=== PATIENT | male | born 1950 | race Caucasian/White ===

== ENCOUNTER → 2016-07-02 | Outpatient (CLI) | payer BC | END | disposition home or self-care (01) | LOC: LAB 14:49 | PROVIDERS: ATTEND Family Medicine | DX: E11.8 Type 2 diabetes mellitus with unspecified complications (principal) | CPT/HCPCS: 36415; 83036 ==

== ENCOUNTER → 2017-01-29 | Outpatient (CLI) | payer BC, MEDICARE ==
[2017-01-29 07:46] LABS: Urine RBC None Seen /hpf (0 - 3)
[2017-01-29 07:55] LABS: Basophils # (auto) 0.1 uL; Basophils % (auto) 1.5 % (0.0-2.0); Eosinophils # (auto) 0.2 uL; Eosinophils % (auto) 3.3 % (0.0-7.0); Hematocrit 45.4 % (41.0-53.0); Hemoglobin 15.4 g/dL (13.5-17.5); Lymphocytes # (auto) 1.7 uL; Lymphocytes % (auto) 29.1 % (10.0-50.0); Mean Corpuscular Hemoglobin 30.3 pg (28.0-32.0); Mean Corpuscular Hgb Conc. 33.9 g/dL (32.0-36.0); Mean Corpuscular Volume 89.5 fL (80.0-100.0); Mean Platelet Volume 7.1 fL (6.9-10.8); Monocytes # (auto) 0.6 uL; Monocytes % (auto) 9.6 % (0.0-12.0); Neutrophils # (auto) 3.4 uL; Neutrophils % (auto) 56.5 % (37.0-80.0); Nucleated Red Blood Cells % 0.1 %; Platelet Count (auto) 287 10^3/uL (140-450); Red Cell Distribution Width 13.5 % (11.8-14.3)
[2017-01-29 07:59] LABS: Urine Bilirubin Negative (Negative); Urine Blood Negative /uL (Negative); Urine Color Yellow (Yellow); Urine Glucose Normal (Normal); Urine Ketone Negative (Negative); Urine Mucus FEW (None Seen); Urine Nitrite Negative (Negative); Urine Sperm PRESENT /hpf (None Seen); Urine Squamous Epithelial Cell FEW /hpf (<5); Urine Urobilinogen Normal (Negative)
[2017-01-29 08:08] LABS: Albumin 3.9 g/dL (3.4-5.0); BUN/Creatinine Ratio 15.1; Bilirubin, Total 0.4 mg/dL (0.2-1.0); Potassium 4.4 mmol/L (3.5-5.1); Total Protein 7.8 g/dL (6.4-8.2)
[2017-01-30 08:09] LABS: PSA Free 1.63 ng/mL; Prostate Specific Antigen 6.3 ng/mL (0.0-4.0)
== END | disposition home or self-care (01) ==
LOC: LAB 07:07
PROVIDERS: ATTEND Family Medicine
DX: E11.9 Type 2 diabetes mellitus without complications (principal); I10 Essential (primary) hypertension; R97.20 Elevated prostate specific antigen [PSA]
CPT/HCPCS: 36415; 80053; 80061; 81001; 82043; 83036; 84153; 84154; 85025

== ENCOUNTER → 2017-09-10 | Outpatient (CLI) | payer BC, MEDICARE ==
[2017-09-10 07:42] LABS: Basophils # (auto) 0 uL; Basophils % (auto) 0.3 % (0.0-2.0); Eosinophils # (auto) 0.3 uL; Eosinophils % (auto) 4.3 % (0.0-7.0); Hematocrit 43.4 % (41.0-53.0); Hemoglobin 14.6 g/dL (13.5-17.5); Mean Corpuscular Hemoglobin 30.1 pg (28.0-32.0); Mean Corpuscular Hgb Conc. 33.7 g/dL (32.0-36.0); Mean Corpuscular Volume 89.4 fL (80.0-100.0); Monocytes # (auto) 0.6 uL; Monocytes % (auto) 9.3 % (0.0-12.0); Neutrophils # (auto) 3.6 uL; Neutrophils % (auto) 56.1 % (37.0-80.0); Nucleated Red Blood Cells % 0.1 %; Platelet Count (auto) 230 10^3/uL (140-450); Red Blood Cells 4.85 10^6/uL (4.5-5.90); White Blood Cell 6.5 10^3/uL (4.4-10.8)
[2017-09-10 08:33] LABS: CRP High Sensitivity 0.13 mg/dL (< 0.3)
== END | disposition home or self-care (01) ==
LOC: LAB 07:16
PROVIDERS: ATTEND Family Medicine
DX: M10.9 Gout, unspecified (principal); I10 Essential (primary) hypertension; E11.9 Type 2 diabetes mellitus without complications; R97.20 Elevated prostate specific antigen [PSA]
CPT/HCPCS: 36415; 84153; 84154; 84550; 85025; 86141

== ENCOUNTER → 2018-04-22 | Outpatient (CLI) | payer BC, MEDICARE | END | disposition home or self-care (01) | LOC: LAB 08:17 | PROVIDERS: ATTEND Urology | DX: C61 Malignant neoplasm of prostate (principal) | CPT/HCPCS: 36415; 82565; 84520 ==

== ENCOUNTER 2018-05-06 06:11 | Inpatient (IN) | payer BC, MEDICARE ==
[2018-05-02 10:12] LABS: Basophils # (auto) 0.1 uL; Eosinophils # (auto) 0.4 uL; Eosinophils % (auto) 6.5 % (0.0-7.0); Hematocrit 46.2 % (41.0-53.0); Hemoglobin 15.7 g/dL (13.5-17.5); Lymphocytes # (auto) 1.5 uL; Lymphocytes % (auto) 23.5 % (10.0-50.0); Mean Corpuscular Hemoglobin 31.2 pg (28.0-32.0); Mean Corpuscular Hgb Conc. 34.1 g/dL (32.0-36.0); Mean Corpuscular Volume 91.6 fL (80.0-100.0); Monocytes # (auto) 0.6 uL; Monocytes % (auto) 9.7 % (0.0-12.0); Neutrophils # (auto) 3.7 uL; Neutrophils % (auto) 59.3 % (37.0-80.0); Nucleated Red Blood Cells % 0.1 %; Platelet Count (auto) 259 10^3/uL (140-450); Red Blood Cells 5.04 10^6/uL (4.5-5.90); Red Cell Distribution Width 14.2 % (11.8-14.3); White Blood Cell 6.3 10^3/uL (4.4-10.8)
[2018-05-02 10:19] LABS: Urine Bacteria NONE SEEN /hpf (None Seen); Urine Blood Negative /uL (Negative); Urine Specific Gravity 1.009 (1.001-1.035); Urine WBC <1 /hpf (0 - 3)
[2018-05-02 10:35] LABS: INR 0.92 (0.9-1.15); Partial Thromboplastin Time 31.1 sec (23.78-33.04); Prothrombin Time 9.9 sec (9.27-12.13)
[2018-05-02 10:40] LABS: Potassium 4.6 mmol/L (3.5-5.1)
[2018-05-02 10:45] LABS: BUN/Creatinine Ratio 18.8; Bilirubin, Total 0.2 mg/dL (0.2-1.0); Calcium 9.4 mg/dL (8.5-10.1); Total Protein 7.9 g/dL (6.4-8.2)
[~2018-05-06] VITALS: Ht 175.3 cm; Wt 104.2 kg
[~2018-05-06 06:11] MED LIST: LISI-646 PO; LOVA20TA4 PO
[2018-05-06] MEDS ORDERED: BUPIVACAINE 0.25% INJ 50ML VIAL ONE (07:09)
[2018-05-06] MEDS ORDERED: LIDOCAINE W/ EPINEPHRINE 1% 20ML VIAL ONE (07:09)
[2018-05-06] MEDS ORDERED: LEVOFLOXACIN 500MG 100 ML IV ONE (07:19)
[2018-05-06] MEDS ORDERED: HYDROmorphone HCL 2 MG/ML VL ONE (07:20)
[2018-05-06] MEDS ORDERED: fentaNYL CITRATE 100 MCG/2 ML VL ONE (07:20)
[2018-05-06] MEDS ORDERED: fentaNYL CITRATE 5 ML ONE (07:20)
[2018-05-06] MEDS ORDERED: MIDAZOLAM HCL 1MG/1ML-2 ML VIAL ONE (07:20)
[2018-05-06] MEDS ORDERED: SUCCINYLCHOLINE CHLORIDE 20 MG/ML 10ML VIAL IV ONE (07:25)
[2018-05-06] MEDS ORDERED: METHYLENE BLUE 0.5% 5MG/ML 10ml AMP IV ONE (07:29)
[2018-05-06] MEDS ORDERED: PROPOFOL 10 MG/ML 20 ML IV ONE (07:35)
[2018-05-06] MEDS ORDERED: DEXAMETHASONE SOD PHOS 10MG/1ML VIAL INJ ONE (07:35)
[2018-05-06] MEDS ORDERED: HYDROmorphone HCL 2 MG/ML VL IV PRN ×2 (09:30→10:15)
[2018-05-06] MEDS ORDERED: MORPHINE SULFATE 4 MG/ML SYR/VIAL IV PRN (09:30)
[2018-05-06] MEDS ORDERED: ONDANSETRON HCL 4 MG/2 ML VIAL IV ONE (09:30)
[2018-05-06] MEDS ORDERED: MIDAZOLAM HCL 1MG/1ML-2 ML VIAL IV PRN (09:30)
[2018-05-06] MEDS ORDERED: KETOROLAC TROMETH 30 MG/ML 1ML VIAL IV ONE (09:30)
[2018-05-06] MEDS ORDERED: ACCU-CHEK COMFORT CURVE STRIP VI ONE (09:30)
[2018-05-06] MEDS ORDERED: LABETALOL HCL 5 MG/ML 4ML SYRINGE IV PRN (09:30)
[2018-05-06] MEDS ORDERED: ePHEDrine SULFATE 50 MG/ML AMP IV PRN (09:30)
[2018-05-06] MEDS ORDERED: GLYCOPYRROLATE 0.2 MG/ML 1ML VIAL ONE (09:43)
[2018-05-06] MEDS ORDERED: KETOROLAC TROMETH 30 MG/ML 1ML VIAL ONE (09:43)
[2018-05-06] MEDS ORDERED: NEOSTIGMINE 1 MG/ML INJ (10mg/10ML VIAL) ONE (09:43)
[2018-05-06] MEDS ORDERED: MORPHINE SULFATE 4 MG/ML SYR/VIAL IV ONE (10:00)
[2018-05-06] MEDS ORDERED: ONDANSETRON HCL 4 MG/2 ML VIAL IV PRN (10:15)
[2018-05-06] MEDS ORDERED: diphenhdrAMINE HCL 50 MG/1 ML VL IV PRN (10:15)
[2018-05-06 11:10] LABS: Calcium 7.9 mg/dL (8.5-10.1); Potassium 4.5 mmol/L (3.5-5.1)
[2018-05-06 11:12] LABS: BUN/Creatinine Ratio 11.6
[2018-05-06] MEDS: D5W/SOD CHL 0.45% 1,000 ML IV SCH ×2 (13:30→18:12)
[2018-05-06 16:31] VITALS: BP 150/71
--- NOTE | 2018-05-06 16:31 | NUR ---
i was given report to assume care , patient is alert and oriented x4 with no distress noted, respirations are unlabored, he is sitting up in bed, wearing a n/c at 2 liters, vs are stable, pain to penis at3/10, abdominal binder in place, urine is pink tinged, flowing well in herndon. pt verbalized hes comfortable. belongings noted, oriented to the room, bed placed to lowest position, call light placed within reach.
[2018-05-06] MEDS ORDERED: ALLO100T PO (16:55)
[2018-05-06 17:14] VITALS: BP 146/83
--- NOTE | 2018-05-06 18:32 | NUR ---
flushed herndon catheter, no blood clots noted, flowing well, 250 output, el color. no bladder distention noted, pt tolerated well.
--- NOTE | 2018-05-06 19:30 | NUR ---
Opening Shift Note Assumed care of patient, awake and alert. No S/S of distress/SOB. Ordaz currently has approximately 350ml of clear yellow void. Patient has abdominal binder and 5 abdominal incisions CDI except for midline which has minimal serosanguineous drainage. Instructed on POC and to call for assist PRN, will continue to monitor for changes Q1hr and PRN.
[2018-05-06] MEDS: PRAVASTATIN SODIUM 20 MG TAB PO SCH (21:09)
[2018-05-06 22:00] VITALS: BP 134/73
[2018-05-06] MEDS: ACETAMINOPHEN/CODEINE#3 (300/30mg) TAB PO PRN (23:15)
--- NOTE | 2018-05-06 23:20 | NUR ---
Patient rounding - patient void in herndon bag is still clear yellow - no clots noted. patient c/o 4 of 10 pain - administered PRN pain medication.
--- NOTE | 2018-05-07 02:00 | NUR ---
Patient rounding - patient resting w/ no signs of distress. Will continue to monitor.
[2018-05-07] MEDS: D5W/SOD CHL 0.45% 1,000 ML IV SCH ×4 (02:40→21:56)
[2018-05-07 05:13] VITALS: BP 131/61
[2018-05-07] MEDS: ACETAMINOPHEN/CODEINE#3 (300/30mg) TAB PO PRN ×4 (05:58→21:56)
[2018-05-07 06:18] LABS: Basophils # (auto) 0 uL; Basophils % (auto) 0.4 % (0.0-2.0); Eosinophils # (auto) 0 uL; Eosinophils % (auto) 0.1 % (0.0-7.0); Hematocrit 39.3 % (41.0-53.0); Hemoglobin 13.3 g/dL (13.5-17.5); Lymphocytes # (auto) 0.9 uL; Lymphocytes % (auto) 8.2 % (10.0-50.0); Mean Corpuscular Hemoglobin 30.9 pg (28.0-32.0); Mean Corpuscular Hgb Conc. 33.7 g/dL (32.0-36.0); Mean Corpuscular Volume 91.8 fL (80.0-100.0); Monocytes # (auto) 1.1 uL; Monocytes % (auto) 10.6 % (0.0-12.0); Neutrophils # (auto) 8.7 uL; Neutrophils % (auto) 80.7 % (37.0-80.0); Platelet Count (auto) 225 10^3/uL (140-450); Red Blood Cells 4.28 10^6/uL (4.5-5.90); Red Cell Distribution Width 14.2 % (11.8-14.3); White Blood Cell 10.8 10^3/uL (4.4-10.8)
--- NOTE | 2018-05-07 06:45 | NUR ---
Patient still draining clear yellow void from herndon bag - no clots noted. Patient did not want leg bag at this moment. Will endorse to rivera DAVIDSON.
[2018-05-07 07:07] LABS: BUN/Creatinine Ratio 13.6; Calcium 8.1 mg/dL (8.5-10.1)
--- NOTE | 2018-05-07 08:00 | NUR ---
RECEIVED PT RESTING IN BED, CALL LIGHT WITHIN REACH, PT DENIES ANY PAIN AT THIS TIME, ABDOMINAL BINDER ON, MID ABDOMEN INCISIONS X5 CLEAN AND DRY, WILL CONTINUE TO MONITOR PT. PT EDUCATED ON THE USE AND FREQUENCY OF THE INCENTIVE SPIROMETER, RETURNED DEMONSTRATION DONE,
[2018-05-07 09:00] VITALS: BP 111/63
[2018-05-07] MEDS: LISINOPRIL 20 MG TAB PO SCH (10:00)
--- NOTE | 2018-05-07 10:10 | NUR ---
DR. MORRIS AT BED SIDE TO SEE PT.
[2018-05-07] MEDS ORDERED: LEVOFLOXACIN 500 MG TAB PO ONE (10:15)
[2018-05-07] MEDS: ALLOPURINOL 100 MG TAB PO SCH (10:23)
--- NOTE | 2018-05-07 11:30 | NUR ---
PT AMBULATED WITH PHYSICAL THERAPY OUT OF THE ROOM ON THE HALLWAY. PT TOLERATED WELL.
--- NOTE | 2018-05-07 11:45 | NUR ---
PAGED AND LEFT A MESSAGE TO DR. ANGEL / UROLOGY FOR THE CONSULT, AWAITING CALL BACK.
--- NOTE | 2018-05-07 12:30 | NUR ---
DR. MORRIS INFORMED REGARDING PT HAVING LOW GRADE FEVERS OF 99.1, NO FURTHER ORDERS RECEIVED.
[2018-05-07 12:57] VITALS: BP 114/67
--- NOTE | 2018-05-07 15:00 | NUR ---
UROLOGY / PAGE AT BED SIDE TO SEE PT.
--- NOTE | 2018-05-07 15:30 | NUR ---
DRESSING CHANGE RECEIVED ORDERS FROM UROLOGY / BANNER TO CHANGE THE ABDOMINAL DRESSINGS. REMOVED OLD DRESSINGS, CLEANED WITH STERILE SALINE, PAD DRY WITH GAUZE, COVERED WITH GAUZE AND SECURE WITH TAPE,
[2018-05-07 17:00] VITALS: BP 129/74
[2018-05-07] MEDS ORDERED: CALCIUM CARB 500 MG CHEW TAB PO PRN (18:45)
--- NOTE | 2018-05-07 18:55 | NUR ---
CALLED AND SPOKE TO [facility]/ HOSPITALIST PER PT'S REQUEST, PT REQUESTING AN ANTI ACID MEDICATION. RECEIVED ORDER TO GIVE PROTONIX 40 MG IV Q DAY AND CALCIUM CARBONATE ONE TABLET TID PRN,
[2018-05-07] MEDS ORDERED: PANTOPRAZOLE 40 MG/10 ML VIAL IV ONE (19:00)
--- NOTE | 2018-05-07 19:30 | NUR ---
Opening Shift Note Assumed care of patient, awake and alert. No S/S of distress/SOB. Instructed on POC and to call for assist PRN, will continue to monitor for changes Q1hr and PRN.
--- NOTE | 2018-05-07 20:00 | NUR ---
Assessments - Ordaz is draining clear yellow output. Patient c/o 3 to 4 pain. Patient has been ambulating during the day per pt. Patient requesting to rest - patient reports fatigue and lack of sleep. Advised patient that I would return during medication pass time.
[2018-05-07] MEDS: PRAVASTATIN SODIUM 20 MG TAB PO SCH (21:56)
[2018-05-07 22:00] VITALS: BP 116/66
[2018-05-08 04:52] LABS: Basophils # (auto) 0.1 uL; Basophils % (auto) 1.2 % (0.0-2.0); Eosinophils # (auto) 0.1 uL; Eosinophils % (auto) 0.8 % (0.0-7.0); Hematocrit 41.6 % (41.0-53.0); Hemoglobin 13.9 g/dL (13.5-17.5); Lymphocytes # (auto) 0.9 uL; Lymphocytes % (auto) 9.2 % (10.0-50.0); Mean Corpuscular Hgb Conc. 33.5 g/dL (32.0-36.0); Mean Corpuscular Volume 92.4 fL (80.0-100.0); Monocytes # (auto) 1.3 uL; Monocytes % (auto) 12.5 % (0.0-12.0); Neutrophils # (auto) 7.8 uL; Neutrophils % (auto) 76.3 % (37.0-80.0); Platelet Count (auto) 190 10^3/uL (140-450); White Blood Cell 10.2 10^3/uL (4.4-10.8)
[2018-05-08 05:15] VITALS: BP 136/75
[2018-05-08] MEDS: ACETAMINOPHEN/CODEINE#3 (300/30mg) TAB PO PRN (07:10)
--- NOTE | 2018-05-08 07:20 | NUR ---
OPENING SHIFT PATIENT AWAKE, ALERT, AND ORIENTED X4. NO S/S OF DISTRESS OR SOB. PATIENT DENIES PAIN AT THIS TIME. RESPIRATIONS ARE EVEN AND UNLABORED. DISCUSSED POC WITH PATIENT. PATIENT VERBALIZED UNDERSTANDING. BED IS IN LOWEST POSITION, SIDE RAILS UP X2, AND CALL LIGHT WITHIN REACH. WILL CONTINUE TO MONITOR Q1 HOUR AND PRN.
[2018-05-08 08:00] VITALS: BP 123/73
[2018-05-08] MEDS ORDERED: PANTOPRAZOLE 40 MG/10 ML VIAL IV SCH (10:00)
[2018-05-08] MEDS ORDERED: LEVOFLOXACIN 500 MG TAB PO ONE (10:15)
[2018-05-08] MEDS: LISINOPRIL 20 MG TAB PO SCH (10:47)
[2018-05-08] MEDS: ALLOPURINOL 100 MG TAB PO SCH (10:47)
[2018-05-08 12:00] VITALS: BP 140/69
[2018-05-08] MEDS: D5W/SOD CHL 0.45% 1,000 ML IV SCH (12:55)
--- NOTE | 2018-05-08 13:08 | NUR ---
PATIENT DISCHARGE PATIENT IS CURRENTLY DISCHARGED. PAPER WORK HAS BEEN SIGNED, ARM BANDS REMOVED, I.V.S REMOVED WITH CATHETERS INTACT. ALL QUESTIONS AND CONCERNS ADDRESSED. EDUCATION HAS BEEN PROVIDED TO PATIENT AND FOR POST PROSTATECTOMY CARE. PATIENT IS TO BE SENT HOME WITH NASCIMENTO AND LEG BAG. LEG BAG ATTACHED. PATIENT WISHES TO SHOWER BEFORE GOING HOME. SHOWER INSTRUCTIONS GIVEN TO PATIENT. PATIENT WILL SHOWER AND THEN BE WHEELED DOWN TO PERSONAL VEHICLE.
--- NOTE | 2018-05-08 14:10 | NUR ---
DISCHARGE PATIENT TRANSPORTED DOWN BY STAFF AND FAMILY MEMBER. NO S/S OF DISTRESS AT TIME OF DEPARTURE.
[2018-05-09] MEDS ORDERED: LEVOFLOXACIN 500 MG TAB PO SCH (10:00)
== END 2018-05-08 14:10 | disposition home or self-care (01) | DRG 708 ==
LOC: EEVIPCON 06:11 → SUR 06:11 → CENTRAL 10:14
PROVIDERS: ADMIT Internal Medicine; ATTEND Internal Medicine
PROC: 0VT34ZZ Resection of Bilateral Seminal Vesicles, Percutaneous Endoscopic Approach (ICD-10-PCS; 2018-05-06)
PROC: 0VBQ4ZZ Excision of Bilateral Vas Deferens, Percutaneous Endoscopic Approach (ICD-10-PCS; 2018-05-06)
PROC: 8E0W4CZ Robotic Assisted Procedure of Trunk Region, Percutaneous Endoscopic Approach (ICD-10-PCS; 2018-05-06)
PROC: 07BC4ZZ Excision of Pelvis Lymphatic, Percutaneous Endoscopic Approach (ICD-10-PCS; 2018-05-06)
PROC: 0VT04ZZ Resection of Prostate, Percutaneous Endoscopic Approach (ICD-10-PCS; principal; 2018-05-06 07:34)
DX: C61 Malignant neoplasm of prostate (principal); E78.5 Hyperlipidemia, unspecified; I10 Essential (primary) hypertension; M10.9 Gout, unspecified; E66.9 Obesity, unspecified; E11.9 Type 2 diabetes mellitus without complications; K21.9 Gastro-esophageal reflux disease without esophagitis; N40.0 Benign prostatic hyperplasia without lower urinary tract symptoms; Z90.79 Acquired absence of other genital organ(s); Z88.0 Allergy status to penicillin; Z79.899 Other long term (current) drug therapy; Z68.33 Body mass index [BMI] 33.0-33.9, adult
CPT/HCPCS: 36415; 80048; 80053; 81001; 85025; 85610; 85730; 86850; 86900; 86901; 97116; 97163; 97530; A6257; C9113; G0378; J0330; J1100; J1885; J1956; J2250; J2704; J3490

== ENCOUNTER 2018-05-10 10:46 | Emergency (ER) | payer BC, MEDICARE ==
[~2018-05-10] VITALS: Ht 180.3 cm; Wt 96.2 kg
[~2018-05-10 10:46] MED LIST changes: +ALLO100T PO
[2018-05-10 10:55] VITALS: BP 161/86
[2018-05-10 12:04] LABS: Basophils # (auto) 0 uL; Basophils % (auto) 0.4 % (0.0-2.0); Eosinophils # (auto) 0.1 uL; Eosinophils % (auto) 0.9 % (0.0-7.0); Hematocrit 41.6 % (41.0-53.0); Hemoglobin 14.3 g/dL (13.5-17.5); Lymphocytes # (auto) 0.6 uL; Lymphocytes % (auto) 5.9 % (10.0-50.0); Mean Corpuscular Hemoglobin 31.6 pg (28.0-32.0); Mean Corpuscular Hgb Conc. 34.3 g/dL (32.0-36.0); Mean Corpuscular Volume 92.1 fL (80.0-100.0); Monocytes # (auto) 0.9 uL; Monocytes % (auto) 8.7 % (0.0-12.0); Neutrophils # (auto) 9.1 uL; Neutrophils % (auto) 84.1 % (37.0-80.0); Nucleated Red Blood Cells % 0.1 %; Platelet Count (auto) 228 10^3/uL (140-450); Red Blood Cells 4.51 10^6/uL (4.5-5.90); Red Cell Distribution Width 14.5 % (11.8-14.3); White Blood Cell 10.8 10^3/uL (4.4-10.8)
[2018-05-10 12:25] LABS: Calcium 8.6 mg/dL (8.5-10.1); Potassium 3.8 mmol/L (3.5-5.1)
[2018-05-10 12:28] LABS: BUN/Creatinine Ratio 16.6
[2018-05-10] MEDS ORDERED: LEVOFLOXACIN 500 MG TAB PO ONE (12:30)
[2018-05-10 12:33] LABS: Urine Bacteria NONE SEEN /hpf (None Seen); Urine Blood 2+ /uL (Negative); Urine Mucus FEW (None Seen); Urine Specific Gravity 1.016 (1.001-1.035); Urine Sperm PRESENT /hpf (None Seen); Urine WBC 17 /hpf (0 - 3)
== END 2018-05-10 12:52 | disposition home or self-care (01) ==
LOC: ER 10:46
DX: N39.0 Urinary tract infection, site not specified (principal); I12.9 Hypertensive chronic kidney disease with stage 1 through stage 4 chronic kidney disease, or unspecified chronic kidney disease; N18.9 Chronic kidney disease, unspecified; E78.5 Hyperlipidemia, unspecified; M10.9 Gout, unspecified; T88.7XXA Unspecified adverse effect of drug or medicament, initial encounter; Y92.89 Other specified places as the place of occurrence of the external cause; Z90.89 Acquired absence of other organs; Z88.0 Allergy status to penicillin
CPT/HCPCS: 36415; 80048; 81001; 85025

== ENCOUNTER → 2018-05-15 | Outpatient (CLI) | payer BC ==
[2018-05-15 11:22] LABS: Calcium 8.1 mg/dL (8.5-10.1); Potassium 4.3 mmol/L (3.5-5.1)
[2018-05-15 11:26] LABS: BUN/Creatinine Ratio 19.4; Uric Acid 6.2 mg/dL (3.5-7.2)
== END | disposition home or self-care (01) ==
LOC: LAB 10:10
PROVIDERS: ATTEND Internal Medicine
DX: M10.9 Gout, unspecified (principal); I10 Essential (primary) hypertension
CPT/HCPCS: 36415; 80048; 84550

== ENCOUNTER → 2018-05-22 | Outpatient (CLI) | payer BC, MEDICARE ==
[~2018-05-22] MED LIST changes: +IOTHALAMATE MEGLUMINE INJ 250ML BOT UR ONE
== END | disposition home or self-care (01) ==
LOC: XY 09:23
PROVIDERS: ATTEND Urology
DX: Z43.6 Encounter for attention to other artificial openings of urinary tract (principal); Z88.0 Allergy status to penicillin; Z98.890 Other specified postprocedural states; Z79.899 Other long term (current) drug therapy
CPT/HCPCS: 51600; 74430; Q9958